=== PATIENT | female | born 1970 | race American Indian/Alaskan Native ===

== ENCOUNTER 2020-06-13 07:10 | Emergency (ER) | payer OTHER ==
--- NOTE | 2020-06-13 08:03 | XRay Report ---
CHEST 2 VIEWS INDICATION / CLINICAL INFORMATION: chest pain. COMPARISON: None available. FINDINGS: SUPPORT DEVICES: None. HEART / MEDIASTINUM: No significant abnormality. LUNGS / PLEURA: Mild increased interstitial prominence and opacities in bilateral lungs No pneumothor ax. ADDITIONAL FINDINGS: No significant additional findings. IMPRESSION: 1. Mild increased interstitial prominence and opacities in bilateral mid and lower lungs. Signer Name: Juvencio Brown MD Signed: 06/13/2020 7:58 AM Workstation Name: [id number]
[2020-06-13 08:45] LABS: Basophils # (Auto) 0.1 K/mm3 (0.0-0.1); Basophils % (Auto) 1.2 % (0.0-1.8); Eosinophils # (Auto) 0.2 K/mm3 (0.0-0.4); Eosinophils % (Auto) 2.5 % (0.0-4.3); Hematocrit 34.5 % (30.3-42.9); Hemoglobin 11.6 gm/dl (10.1-14.3); Lymphocytes # (Auto) 1.9 K/mm3 (1.2-5.4); Lymphocytes % (Auto) 26.1 % (13.4-35.0); Mean Corpuscular HGB Conc 34 % (30-34); Mean Corpuscular Volume 95 fl (79-97); Monocytes # (Auto) 0.6 K/mm3 (0.0-0.8); Monocytes % (Auto) 8.6 % (0.0-7.3); Platelet Count 335 K/mm3 (140-440); Red Blood Count 3.62 M/mm3 (3.65-5.03); Red Cell Distribution Width 14.6 % (13.2-15.2)
[2020-06-13 09:10] LABS: Alanine Aminotransferase 33 units/L (7-56); Albumin 3.4 g/dL (3.9-5); Blood Urea Nitrogen 13 mg/dL (7-17); Calcium 8.6 mg/dL (8.4-10.2); Hemolysis Index 1
[2020-06-13 09:49] LABS: BUN/Creatinine Ratio 22
[2020-06-13] MEDS ORDERED: IPRATROPIUM/ALBUTEROL SULFATE 3 ML AMPUL.NEB IH ONE (09:49)
[2020-06-13] MEDS ORDERED: MORPHINE 4 MG/1 ML INJ IV ONE (09:49)
[2020-06-13] MEDS ORDERED: SODIUM CHLORIDE 0.9% 1000 ML 1,000 ML IV ONE (09:49)
[2020-06-13] MEDS ORDERED: methylPREDNISolone Sod Succinate 125 MG/2 ML INJ IV ONE (09:49)
--- NOTE | 2020-06-13 10:08 | Emergency Department Report ---
ED Chest Pain HPI - General Chief Complaint: Chest Pain Stated Complaint: CHEST TIGHTNESS, MIGRAINE Time Seen by Provider: 06/13/20 09:32 Source: patient, EMS Mode of arrival: Stretcher Limitations: No Limitations - History of Present Illness Initial Comments: This is a 49-year-old female presents to the emergency department with a complaint of chest tightness, shortness of breath, a generalized headache, cough. Patient was diagnosed with COVID-19 on May 13 at [facility]. She had 3 different admissions there for respiratory issues and complications of COVID-19 and her last discharge from there was on May 24. She is now oxygen dependent at home on 2 L via nasal cannula. There is some questionable history of borderline diabetes and borderline hypertension, but the patient is not on medication for this. She also has a history of remote paroxysmal atrial fibrillation and is not on anticoagulation. Patient complains of a generalized chest tightness that worsens with any type of movement or exertion. She also says that her heart rate goes up with movement and exertion and "now I usually do not have a resting heart rate any lower than 115 bpm." The patient has a primary care physician but cannot currently remember the name and has an appointment coming up soon. She has a marketing developer, Dr. Tim Vivas. Severity scale (0 -10): 0 - Related Data Home Medications Medication Instructions Recorded Confirmed Last Taken Kyolic Garlic Extract 10/25/12 10/25/12 10/24/12 14:00 Naproxen Sodium [Aleve TAB] 220 mg PO 10/25/12 10/25/12 10/25/12 15:00 Previous Rx's Medication Instructions Recorded Last Taken Type Acetaminophen/Codeine [Tylenol 1 tab PO Q6H PRN #15 tab 04/07/15 Unknown Rx /Codeine # 3 tab] methOCARBAMOL [Robaxin TAB] 500 mg PO BID #20 tab 04/07/15 Unknown Rx Ondansetron [Zofran Odt] 4 mg PO Q8HR #12 tab.rapdis 04/27/15 Unknown Rx Famotidine [Pepcid] 20 mg PO BID #20 tablet 11/02/17 Unknown Rx guaiFENesin/CODEINE [Robitussin AC] 5 ml PO Q6H PRN #100 ml 06/13/20 Unknown Rx Allergies Allergy/AdvReac Type Severity Reaction Status Date / Time No Known Allergies Allergy Unverified 11/01/17 22:15 Heart Score - HEART Score History: Slightly suspicious EKG: Normal Age: 45-65 Risk factors: 1-2 risk factors Troponin: < normal limit HEART Score: 2 - EKG Read Time Time EKG Completed: 07:22 EKG Read Time: 07:28 ED Review of Systems ROS: Stated complaint: CHEST TIGHTNESS, MIGRAINE Other details as noted in HPI Comment: All other systems reviewed and negative Constitutional: denies: chills, fever Eyes: denies: eye pain, vision change ENT: denies: ear pain, throat pain Respiratory: cough, shortness of breath Cardiovascular: chest pain. denies: edema Gastrointestinal: denies: abdominal pain, vomiting Genitourinary: denies: dysuria, discharge Musculoskeletal: denies: back pain, arthralgia Skin: denies: rash, lesions Neurological: headache. denies: weakness, numbness, paresthesias ED Past Medical Hx - Past Medical History Hx Hypertension: Yes ("never been on medication") Hx Heart Attack/AMI: No Hx Congestive Heart Failure: No Hx Diabetes: Yes Hx Deep Vein Thrombosis: No Hx Liver Disease: No Hx Asthma: No Hx COPD: No - Surgical History Hx Coronary Stent: No Hx Pacemaker: No Hx Internal Defibrillator: No Additional Surgical History: A-fib, sepsis - Social History Smoking Status: Never Smoker Substance Use Type: None - Medications Home Medications: Home Medications Medication Instructions Recorded Confirmed Last Taken Type Kyolic Garlic Extract 10/25/12 10/25/12 10/24/12 14:00 History Naproxen Sodium [Aleve TAB] 220 mg PO 10/25/12 10/25/12 10/25/12 15:00 History Acetaminophen/Codeine [Tylenol 1 tab PO Q6H PRN #15 tab 04/07/15 Unknown Rx /Codeine # 3 tab] methOCARBAMOL [Robaxin TAB] 500 mg PO BID #20 tab 04/07/15 Unknown Rx Ondansetron [Zofran Odt] 4 mg PO Q8HR #12 tab.rapdis 04/27/15 Unknown Rx Famotidine [Pepcid] 20 mg PO BID #20 tablet 11/02/17 Unknown Rx guaiFENesin/CODEINE [Robitussin AC] 5 ml PO Q6H PRN #100 ml 06/13/20 Unknown Rx ED Physical Exam - General Limitations: No Limitations - Other Other exam information: GENERAL: The patient is well-developed well-nourished. HENT: Normocephalic. Atraumatic. Patient has moist mucous membranes. EYES: Extraocular motions are intact. NECK: Supple. Trachea is midline. CHEST/LUNGS: Clear to auscultation. Mild tachypnea but no accessory muscle use. A dry cough heard during examination. HEART/CARDIOVASCULAR: Regular. There is mild tachycardia. There is no murmur. ABDOMEN: Abdomen is soft, nontender. Patient has normal bowel sounds. There is no abdominal distention. SKIN: Skin is warm and dry. NEURO: The patient is awake, alert, and oriented. The patient is cooperative. The patient has no focal neurologic deficits. Normal speech. MUSCULOSKELETAL: There is no tenderness or deformity. There is no limitation range of motion. ED Course Vital Signs 06/13/20 06/13/20 06/13/20 07:18 09:36 09:46 Temperature 97.9 F Pulse Rate 80 119 H Pulse Rate [ Anterior Bilateral Throughout] Respiratory 20 20 32 H Rate Respiratory Rate [Anterior Bilateral Throughout] Blood Pressure Blood Pressure 147/83 [Right] O2 Sat by Pulse 100 100 Oximetry 06/13/20 06/13/20 06/13/20 10:00 10:06 10:16 Temperature Pulse Rate 98 H 90 Pulse Rate [ 96 H Anterior Bilateral Throughout] Respiratory 19 20 Rate Respiratory 12 Rate [Anterior Bilateral Throughout] Blood Pressure Blood Pressure [Right] O2 Sat by Pulse 99 100 Oximetry 06/13/20 06/13/20 06/13/20 10:30 10:45 10:46 Temperature Pulse Rate 92 H 89 Pulse Rate [ Anterior Bilateral Throughout] Respiratory 19 18 16 Rate Respiratory Rate [Anterior Bilateral Throughout] Blood Pressure Blood Pressure [Right] O2 Sat by Pulse 100 95 92 Oximetry 06/13/20 06/13/20 06/13/20 10:50 11:00 11:16 Temperature Pulse Rate 101 H 99 H Pulse Rate [ Anterior Bilateral Throughout] Respiratory 17 28 H 19 Rate Respiratory Rate [Anterior Bilateral Throughout] Blood Pressure 146/95 159/86 Blood Pressure [Right] O2 Sat by Pulse 99 Oximetry 06/13/20 06/13/20 06/13/20 11:30 11:46 12:00 Temperature Pulse Rate 89 93 H Pulse Rate [ Anterior Bilateral Throughout] Respiratory 17 20 Rate Respiratory Rate [Anterior Bilateral Throughout] Blood Pressure 159/86 150/101 141/83 Blood Pressure [Right] O2 Sat by Pulse 98 100 Oximetry 06/13/20 06/13/20 06/13/20 12:16 12:30 12:55 Temperature Pulse Rate 98 H 93 H Pulse Rate [ Anterior Bilateral Throughout] Respiratory 19 22 16 Rate Respiratory Rate [Anterior Bilateral Throughout] Blood Pressure 139/89 139/89 Blood Pressure 139/89 [Right] O2 Sat by Pulse 100 95 95 Oximetry SHARYN score - Sharyn Score Age > 65: (0) No Aspirin use within the Past 7 Days: (0) No 3 or more CAD Risk Factors: (0) No 2 or more Angina events in past 24 hrs: (1) Yes Known CAD with more than 50% Stenosis: (0) No Elevated Cardiac Markers: (0) No ST Deviation Greater than 0.5mm: (0) No SHARYN Score: 1 ED Medical Decision Making - Lab Data Result diagrams: 06/13/20 08:07 06/13/20 08:07 Lab Results 06/13/20 06/13/20 06/13/20 Range/Units 08:07 08:07 09:56 WBC 7.2 (4.5-11.0) K/mm3 RBC 3.62 L (3.65-5.03) M/mm3 Hgb 11.6 (10.1-14.3) gm/dl Hct 34.5 (30.3-42.9) % MCV 95 (79-97) fl MCH 32 (28-32) pg MCHC 34 (30-34) % RDW 14.6 (13.2-15.2) % Plt Count 335 (140-440) K/mm3 Lymph % (Auto) 26.1 (13.4-35.0) % [place] % (Auto) 8.6 H (0.0-7.3) % Eos % (Auto) 2.5 (0.0-4.3) % Baso % (Auto) 1.2 (0.0-1.8) % Lymph # (Auto) 1.9 (1.2-5.4) K/mm3 [place] # (Auto) 0.6 (0.0-0.8) K/mm3 Eos # (Auto) 0.2 (0.0-0.4) K/mm3 Baso # (Auto) 0.1 (0.0-0.1) K/mm3 Seg Neutrophils % 61.6 (40.0-70.0) % Seg Neutrophils # 4.4 (1.8-7.7) K/mm3 D-Dimer < 135.00 (0-234) ng/mlDDU Sodium 142 (137-145) mmol/L Potassium 4.0 (3.6-5.0) mmol/L Chloride 107.0 (98-107) mmol/L Carbon Dioxide 28 (22-30) mmol/L Anion Gap 11 mmol/L BUN 13 (7-17) mg/dL Creatinine 0.6 (0.6-1.2) mg/dL Estimated GFR > 60 ml/min BUN/Creatinine Ratio 22 % Glucose 96 (65-100) mg/dL Calcium 8.6 (8.4-10.2) mg/dL Total Bilirubin 0.20 (0.1-1.2) mg/dL AST 16 (5-40) units/L ALT 33 (7-56) units/L Alkaline Phosphatase 50 (35-129) units/L Troponin T < 0.010 (0.00-0.029) ng/mL NT-Pro-B Natriuret Pep (0-450) pg/mL Total Protein 6.5 (6.3-8.2) g/dL Albumin 3.4 L (3.9-5) g/dL Albumin/Globulin Ratio 1.1 % 06/13/20 06/13/20 Range/Units 09:56 10:13 WBC (4.5-11.0) K/mm3 RBC (3.65-5.03) M/mm3 Hgb (10.1-14.3) gm/dl Hct (30.3-42.9) % MCV (79-97) fl MCH (28-32) pg MCHC (30-34) % RDW (13.2-15.2) % Plt Count (140-440) K/mm3 Lymph % (Auto) (13.4-35.0) % [place] % (Auto) (0.0-7.3) % Eos % (Auto) (0.0-4.3) % Baso % (Auto) (0.0-1.8) % Lymph # (Auto) (1.2-5.4) K/mm3 [place] # (Auto) (0.0-0.8) K/mm3 Eos # (Auto) (0.0-0.4) K/mm3 Baso # (Auto) (0.0-0.1) K/mm3 Seg Neutrophils % (40.0-70.0) % Seg Neutrophils # (1.8-7.7) K/mm3 D-Dimer (0-234) ng/mlDDU Sodium (137-145) mmol/L Potassium (3.6-5.0) mmol/L Chloride (98-107) mmol/L Carbon Dioxide (22-30) mmol/L Anion Gap mmol/L BUN (7-17) mg/dL Creatinine (0.6-1.2) mg/dL Estimated GFR ml/min BUN/Creatinine Ratio % Glucose (65-100) mg/dL Calcium (8.4-10.2) mg/dL Total Bilirubin (0.1-1.2) mg/dL AST (5-40) units/L ALT (7-56) units/L Alkaline Phosphatase (35-129) units/L Troponin T < 0.010 (0.00-0.029) ng/mL NT-Pro-B Natriuret Pep 5.58 (0-450) pg/mL Total Protein (6.3-8.2) g/dL Albumin (3.9-5) g/dL Albumin/Globulin Ratio % - EKG Data -: EKG Interpreted by Pa EKG shows normal: sinus rhythm, axis, intervals, QRS complexes, ST-T waves Rate: tachycardia (110 bpm) - EKG Data When compared to previous EKG there are: no significant change Interpretation: unchanged when compared t (10/31/17) - Radiology Data Radiology results: report reviewed CHEST 2 VIEWS INDICATION / CLINICAL INFORMATION: chest pain. COMPARISON: None available. FINDINGS: SUPPORT DEVICES: None. HEART / MEDIASTINUM: No significant abnormality. LUNGS / PLEURA: Mild increased interstitial prominence and opacities in bilateral lungs No pneumothorax. ADDITIONAL FINDINGS: No significant additional findings. IMPRESSION: 1. Mild increased interstitial prominence and opacities in bilateral mid and lower lungs. - Medical Decision Making This patient presents with a complaint of shortness of breath, generalized chest tightness, headache. Patient recently had COVID-19 which appears to have caused her to become home O2 dependent. On examination the patient has some mild tachycardia, mild tachypnea and a dry cough. Her chest tightness/discomfort appears to worsen with movement and during her cough which appears more consistent with pleuritic pain or costochondritis than it does with coronary artery disease/ACS. Chest x-ray shows some mild bilateral patchy areas of opacification that was read by radiology as consistent with atelectasis. This is probably residual atelectasis or scarring from recent Covid pneumonia. EKG did not have any morphology consistent with ST elevation myocardial infarction. Patient's labs have been unremarkable including CBC, metabolic panel, negative troponins x2 and a negative D-dimer. The patient was given some IV fluid resuscitation, IV analgesia, a dose of steroids and a breathing treatment. She was reevaluated multiple times over multiple hours and both appears and feels improved. She has good outpatient follow-up with primary care, cardiology and pulmonology, with appointments in the next 1 to 2 days. For all these reasons the patient appears safe for discharge home at this time. She says that she has an albuterol inhaler at home to use. She was given a dose of Decadron here before discharge. While the patient had some mild tachycardia, the rest of the vital signs have been reassuring including being afebrile and no hypoxia. She will return to the emergency department with any worsening of her symptoms or with any acute distress. Critical Care Time: No Critical care attestation.: If time is entered above; I have spent that time in minutes in the direct care of this critically ill patient, excluding procedure time. ED Disposition Clinical Impression: Post-COVID syndrome, Shortness of breath, Atypical chest pain Disposition: DC-01 TO HOME OR SELFCARE Is pt being admited?: No Condition: Stable Instructions: Nonspecific Chest Pain, Adult, Shortness of Breath, Adult Additional Instructions: Please follow-up with your primary care physician, massage therapist, and marketing developer, as previously scheduled. Return to the emergency department with any worsening of your symptoms, new or concerning symptoms not addressed during this current emergency department visit, or with any acute distress. Prescriptions: guaiFENesin/CODEINE [Robitussin AC] 5 ml PO Q6H PRN #100 ml PRN Reason: Cough Referrals: PRIMARY CAREMD [Primary Care Provider] - 06/14/20 [employer], Your [Other] - 3-5 Days Time of Disposition: 12:11
[2020-06-13] MEDS ORDERED: DEXAMETHASONE 4 MG TAB PO ONE (12:39)
[2020-06-13 12:55] VITALS: BP 139/89
--- NOTE | 2020-06-14 09:34 | Electrocardiograph Report ---
[facility] Test Date: 2020-06-13 Test Time: 07:22:26 Pat Name: KATHI LALA Department: Room: Gender: F Commodity Manager: WOODY : 1970 Requested By: ED DOC Order Number: [id number] Reading MD: Luciano Fowler Measurements Intervals [place] Rate: 110 P: 0 MN: 108 QRS: -3 QRSD: 73 T: 0 QT: 333 QTc: 451 Interpretive Statements Sinus tachycardia No previous ECG available for comparison Electronically Signed On 06-14-2020 9:34:11 EDT by Luciano Fowler
== END 2020-06-13 13:00 | disposition home or self-care (01) ==
LOC: ED 07:10
DX: R07.89 Other chest pain (principal); R06.02 Shortness of breath; B94.8 Sequelae of other specified infectious and parasitic diseases; I10 Essential (primary) hypertension; E11.9 Type 2 diabetes mellitus without complications; Z79.899 Other long term (current) drug therapy
CPT/HCPCS: 36415; 71046; 80053; 83880; 84484; 85025; 85379; 93005; 94640; 96361; 96374; 96375; 99285; J2270; J2930; J7030; J8540; 94644